=== PATIENT | female | born 1940 | race Caucasian/White ===

== ENCOUNTER → 2016-05-31 | Outpatient (CLI) | payer MEDICARE, OTHER ==
[~2016-05-31] MED LIST: ASPI81TA2 PO; ATOR40TA64 PO; CARV3.123 PO; CYAN10009 PO; FERR325T40 PO; GABA-215 PO; METF500T4 PO; NITR0.4T39 SL; PANT40TA32 PO; SODI45SP7 NAS; SUCR1TAB PO; WARF3TAB7 PO; ZOLP-113 PO; [UNRECOGNIZED DRUG - CODE] PO
--- NOTE | 2016-05-31 15:05 | DI ---
Indication: ITS.REASON: I82.409 Acute embolism and thrombosis of unspecified deep veins o PROCEDURE: US VENOUS DUPLEX, LOWER EXT LT: Encounter: Initial Comparison: None Technique: Color Doppler duplex and grayscale sonographic imaging of the left lower extremity was performed. Findings: There is echogenic nonocclusive thrombus was again seen in the left lower extremity, specifically in the superficial femoral vein distally which is duplicated. There is cannulized flow identified centrally. No superimposed hypoechoic thrombus seen currently. The popliteal vein appears unremarkable. Impression: 1. Nonocclusive deep venous thrombosis of the duplicated superficial femoral vein distally. 2. Superimposed acute thrombus not clearly apparent. There appears to be some improvement since the reference study of 11/06/2015. .
== END ==
LOC: IMA 14:10
PROVIDERS: ATTEND Internal Medicine
DX: I82.402 Acute embolism and thrombosis of unspecified deep veins of left lower extremity (principal); I82.512 Chronic embolism and thrombosis of left femoral vein

== ENCOUNTER 2016-06-15 11:50 | Outpatient (CLI) | payer MEDICARE, OTHER ==
[2016-06-15] VITALS (13 sets, daily range): BP systolic 121–167; BP diastolic 65–84; PULSE 61–73; RESP 14–18; TEMP 96.6–97.5; O2SAT 93–100; Ht 147.3 cm; Wt 47.4 kg
[~2016-06-15] VITALS: Ht 147.3 cm; Wt 47.4 kg
[~2016-06-15 11:50] MED LIST changes: -CARV3.123 PO; +CARV6.252 PO; -FERR325T40 PO; -SODI45SP7 NAS; +WARF2TAB58 PO; -WARF3TAB7 PO; +WARF4TAB41 PO; -ZOLP-113 PO
--- NOTE | 2016-06-15 11:55 | NUR ---
ADMIT PT ADMITTED TO ROOM 116 AT THIS TIME VIA WHEELCHAIR. PT ASSISTED TO BED WITH ASSIST X2 AND GAIT BELT. PT ORIENTED TO HOSPITAL ROOM. WILL CONTINUE TO MONITOR.
[2016-06-15] MEDS ORDERED: SACU1TAB7 PO (12:24)
[2016-06-15] MEDS ORDERED: CYAN10009 PO (12:24)
[2016-06-15 12:59] LABS: BASOPHILS % (AUTO) 0.2 % (0-2); EOSINOPHILS # (AUTO) 0.4 T/MM3 (0-0.5); HCT - HEMATOCRIT 32.1 % (36-46); HGB - HEMOGLOBIN 10.1 GM/DL (12-16); LYMPHOCYTES # (AUTO) 0.9 T/MM3 (1-4.8); MEAN CORPUSCULAR HGB 31.8 UUG (26-34); MEAN CORPUSCULAR HGB CONC(MCHC 31.5 GM/DL (31-37); MEAN CORPUSCULAR VOLUME 100.9 UM3 (80-100); MEAN PLATELET VOLUME 10.8 UM3 (9.4-12.4); MONOCYTES # (AUTO) 0.5 T/MM3 (0-0.8); MONOCYTES % (AUTO) 8.2 % (0-9.0); NEUTROPHILS #(AUTO)-ABSOLUTE 4.2 T/MM3 (1.8-7.7); NEUTROPHILS % (AUTO) 70.6 % (33-66); RED BLOOD COUNT 3.18 M/MM3 (4.00-5.20)
[2016-06-15] MEDS: NORMAL SALINE 1,000 ML IV SCH (13:06)
[2016-06-15 13:09] LABS: INR 1.16 (0.76-1.04); PROTHROMBIN TIME 12.6 SEC (9.31-12.49)
[2016-06-15 13:15] LABS: ANION GAP 12 MEQ/L (5-15); BUN/CREATININE RATIO 17 RATIO (6-26); CALCIUM 9.5 MG/DL (8.4-10.2); CHLORIDE 109 MEQ/L (98-107); CO2 - CARBON DIOXIDE 25 MEQ/L (22-30); CREATININE 1.9 MG/DL (0.7-1.2); GLOMERULAR FILTRATION RATE 26; GLUCOSE 109 MG/DL (65-110); POTASSIUM 4.3 MEQ/L (3.6-5); SODIUM 146 MEQ/L (134-144)
--- NOTE | 2016-06-15 14:16 | NUR ---
CM CM IN TO VISIT PATIENT, SHE IS A&O. MULTIPLE FAMILY MEMBERS PRESENT AT BEDSIDE. PATIENT PLANS TO DISCHARGE HOME, SHE LIVES WITH HER DAUGHTER AND DENIES ANY DISCHARGE NEEDS. CM CONTACT INFORMATION PROVIDED. LEYLA PINEDA. LACE SCORE IS 3, NO FURTHER FOLLOW UP IS NEEDED. Addendum: 06/15/16 at 1418 by SARMAD ARELLANO RN Amended: Links added.
[2016-06-15] MEDS ORDERED: WATER FOR INJECTION 20 ML ONE (15:28)
[2016-06-15] MEDS ORDERED: MIDAZOLAM 2mg/2ml INJECTION ONE ×2 (15:28→16:40)
[2016-06-15] MEDS ORDERED: FENTANYL 100mcg/2ml INJECTION ONE (15:28)
[2016-06-15] MEDS ORDERED: CEFAZOLIN 1 GRAM INJECTION ONE (15:28)
[2016-06-15] MEDS ORDERED: LIDOCAINE 1% (10mg/ml) 30ml SDV ONE (15:29)
[2016-06-15] MEDS ORDERED: SALINE FLUSH 10ml SYRINGE ONE (15:29)
--- NOTE | 2016-06-15 15:29 | NUR ---
to custodial laborer pt is going to custodial laborer per cart. pt went to the bathroom before going to custodial laborer. family present at transfer. vs are stable and pt is on ra. will continue to monitor.
[2016-06-15] MEDS ORDERED: BACITRACIN INJ. 50,000 UNITS VL ONE (15:30)
[2016-06-15] MEDS ORDERED: OXYCODONE/APAP 5mg/325mg TABLET PO PRN (16:00)
[2016-06-15] MEDS ORDERED: ACETAMINOPHEN 325 MG TABLET PO PRN (16:00)
[2016-06-15] MEDS ORDERED: NITROGLYCERIN 0.4 MG SUBLINGUAL TABLET SL PRN (16:00)
[2016-06-15] MEDS ORDERED: BISACODYL 5 MG E.C. TABLET PO PRN (16:00)
[2016-06-15] MEDS ORDERED: CEFAZOLIN 1 G in NORMAL SALINE 100 ML IV SCH (16:00)
[2016-06-15] MEDS ORDERED: MAG-AL + SIM LIQUID 30 ML UDC PO PRN (16:00)
[2016-06-15] MEDS ORDERED: IOHEXOL 350mg/ml 200ml BOTTLE ONE (16:21)
--- NOTE | 2016-06-15 16:38 | NUR ---
COUMADIN CONSULT (Initial): Dx: PACEMAKER INSERTION TODAY'S INR = 1.16 Will give Warfarin 4mg today. (Home dose is 2mg daily except SUN and Thurs. 4mg on SUN and Thurs. Increased dose today due to low INR. Will continue to monitor and make adjustments accordingly. Thank you.
[2016-06-15] MEDS ORDERED: WARFARIN 4 MG TABLET PO ONE (16:45)
[2016-06-15] MEDS: CARVEDILOL 6.25 MG PO SCH (18:29)
[2016-06-15] MEDS: --POM--METFORMIN 500 MG TABLET PO SCH (18:30)
[2016-06-15] MEDS: --POM--PANTOPRAZOLE 40 MG TABLET PO SCH (20:00)
[2016-06-15] MEDS ORDERED: --POM--ATORVASTATIN 40 MG TABLET PO SCH (22:00)
[2016-06-15] MEDS ORDERED: --POM--GABAPENTIN 300 MG CAPSULE PO SCH (22:00)
[2016-06-15] MEDS ORDERED: TIZANIDINE 2 MG PO SCH (22:00)
[2016-06-15] MEDS ORDERED: SUCRALFATE 1 GM PO SCH (22:00)
[2016-06-16 00:32] VITALS: BP 102/58; PULSE 72; RESP 18; TEMP 97.9; O2SAT 95
[2016-06-16] MEDS: NORMAL SALINE 1,000 ML IV SCH (02:48)
[2016-06-16 04:00] VITALS: BP 155/68; PULSE 79; RESP 16; TEMP 97.7; O2SAT 96
[2016-06-16] MEDS: --POM--PANTOPRAZOLE 40 MG TABLET PO SCH (06:04)
[2016-06-16 07:40] VITALS: BP 155/82; PULSE 80; RESP 16; TEMP 97.6; O2SAT 98
[2016-06-16] MEDS: CARVEDILOL 6.25 MG PO SCH (08:29)
[2016-06-16] MEDS: --POM--METFORMIN 500 MG TABLET PO SCH (08:29)
[2016-06-16] MEDS: CEFAZOLIN 1 G in NORMAL SALINE 100 ML IV SCH ×3 (08:35)
[2016-06-16] MEDS ORDERED: MINO100C43 PO (08:48)
[2016-06-16] MEDS ORDERED: CYANOCOBALAMIN 1000 MCG PO SCH (09:00)
[2016-06-16] MEDS ORDERED: WARFARIN 2 MG TABLET PO SCH (09:00)
[2016-06-16] MEDS ORDERED: SACUBITRIL PO SCH (09:00)
[2016-06-16] MEDS ORDERED: VALSARTAN PO SCH (09:00)
[2016-06-16] MEDS ORDERED: CYANOCOBALAMIN (B-12) 500mcg TABLET PO SCH (09:00)
[2016-06-16] MEDS ORDERED: MINOCYCLINE 100 MG CAPSULE PO SCH (09:00)
[2016-06-16] MEDS ORDERED: WARFARIN 4 MG TABLET PO SCH (09:00)
[2016-06-16] MEDS ORDERED: --POM--ASPIRIN *EC* 81mg TABLET PO SCH (09:00)
--- NOTE | 2016-06-16 09:14 | DI ---
Indication: ITS.REASON: PPM Procedure: CHEST, PA LATERAL: Encounter: Subsequent Comparison: 06/15/2016 Technique: PA and lateral radiographs of the chest were obtained. Findings: Unchanged left pectoral dual-chamber pacer/ICD device. Lungs and airways: Normal lung volumes. No focal airspace consolidation. Normal pulmonary vasculature. Pleura: Trace bilateral posterior pleural effusions. No pneumothorax. Heart and mediastinum: The heart is mildly enlarged. Postoperative changes of CABG. Aortic atherosclerosis. Retrocardiac hiatal hernia versus prominent epicardial fat pad. Osseous structures and soft tissues: No acute osseous abnormality is seen. Postoperative changes of median sternotomy. Impression: 1. Unchanged left pectoral dual-chamber pacer/ICD device with no pneumothorax identified. 2. Unchanged trace bilateral posterior pleural effusions. 3. Atherosclerotic disease with postoperative changes of CABG. .
--- NOTE | 2016-06-16 09:18 | DI ---
Indication: ITS.REASON: PPM Procedure: CHEST 1 VIEW: Encounter: Initial Comparison: 02/05/2016 Technique: A single portable AP chest radiograph was obtained. Findings: Life support devices: Interval placement of a left pectoral dual-chamber pacer/ICD device. Lungs and airways: Normal lung volumes. No focal airspace consolidation. Normal pulmonary vasculature. Pleura: No pleural effusion or pneumothorax. Heart and mediastinum: Cardiomegaly. Aortic atherosclerosis. Postoperative changes of CABG. Retrocardiac hiatal hernia versus prominent epicardial fat pad. Osseous structures and soft tissues: No acute osseous abnormality is seen. Postoperative changes of median sternotomy. Impression: Placement of a left pectoral dual-chamber pacer/ICD device with no pneumothorax identified. .
--- NOTE | 2016-06-16 09:39 | NUR ---
DM screen No recent A1c; Home meds: Metformin; Hx of eating difficulties, but now daughter of patients cuts up meal into small pieces. Pt eats 3 meals daily and does not skip meals. No SMBG. RD gave log sheet, along with ADA BG targets, and suggested patient obtain script from PCP for test strips.
--- NOTE | 2016-06-16 10:45 | NUR ---
DISMISSAL PATIENT DISMISSED TO HOME FOR SELF-CARE TO THE ER ENTRANCE VIA WHEELCHAIR. PATIENT'S DAUGHTER WAS THE SPECIAL EDUCATION TEACHING ASSISTANT HOME. PERSONAL BELONGINGS SENT WITH PATIENT. IV CATHETER REMOVED AND IV CATHETER TIP INTACT. SLING AND DEFIBRILLATOR PACKET SENT WITH PATIENT. D/C INSTRUCTIONS REVIEWED PRIOR TO D/C. BOTH PT AND DAUGHTER VERBALIZED UNDERSTANDING. TOPICS DISCUSSED INCLUDED: NEW MEDICATIONS, S/S TO REPORT, INCISION CARE, AND DEFIBRILLATOR CARE.
== END 2016-06-16 10:45 | disposition home or self-care (01) ==
LOC: CATH 11:50 → SRG 11:51 → CATH 06-16 10:45
PROVIDERS: ATTEND Internal Medicine Cardiovascular Disease
DX: I25.5 Ischemic cardiomyopathy (principal); I25.810 Atherosclerosis of coronary artery bypass graft(s) without angina pectoris; I36.1 Nonrheumatic tricuspid (valve) insufficiency; E11.9 Type 2 diabetes mellitus without complications; E78.2 Mixed hyperlipidemia; G35 Multiple sclerosis; Z95.5 Presence of coronary angioplasty implant and graft; Z79.01 Long term (current) use of anticoagulants; Z79.82 Long term (current) use of aspirin; Z79.84 Long term (current) use of oral hypoglycemic drugs; Z79.899 Other long term (current) drug therapy; Z82.49 Family history of ischemic heart disease and other diseases of the circulatory system
CPT/HCPCS: 33249; 36415; 71010; 71020; 80048; 85025; 85610; 93005; 93641; A9270; C1721; C1895; C1898; J0690; J2250; J3010; J7030; J7050; L3650; Q9967